=== PATIENT | female | born 1990 | race Caucasian/White ===

== ENCOUNTER 2024-12-06 16:22 | Inpatient (IN) | payer OTHER, SELFPAY ==
[2024-12-06] MEDS ORDERED: IPRATROPIUM BROM 0.5MG/2.5ML ONE ×2 (16:38→18:50)
[2024-12-06] MEDS ORDERED: ALBUTEROL 2.5 MG/3 ML NEB SOL ONE ×2 (16:38→18:50)
[2024-12-06 17:26] LABS: Absolute Lymphocytes (CBC) 2.4 K/uL (0.7-4.9); Hematocrit 31.2 % (36.0-45.0); Hemoglobin 10.1 g/dL (12.0-15.0); MCH 25.3 pg (27.0-35.0); MCHC 32.3 g/dL (32.0-36.0); MCV 78.1 fL (80-100); MPV 7.0 fL (7.6-11.3); Nucleated RBC Absolute Count 0.0 (0-0); Nucleated Red Blood Cells % 0.0 % (0-0); RBC Red Blood Cell Count 4.00 M/uL (3.86-4.86); White Blood Count 9.90 thou/uL (4.3-10.9)
[2024-12-06 17:38] LABS: PT Prothrombin Time 11.0 SECONDS (10-13.0); PTT, Activated Partial Thromb 29.8 SECONDS (27.2-37.4); Protime INR 0.97
[2024-12-06 17:48] LABS: ALT/SGPT 170.0 U/L (13-56); AST/SGOT 149.0 U/L (15-37); Albumin 3.3 g/dL (3.4-5.0); Albumin/Globulin Ratio 0.9 (1.1-1.8); Alkaline Phosphatase 143.0 U/L (45-117); Anion Gap 11.4 mEq/L (5.0-15.0); BUN Blood Urea Nitrogen 5.0 mg/dL (7-18); Globulin 3.6 g/dL (2.3-3.5); Glucose Level 107.0 mg/dL (74-106); NT PRO-BNP 2136.0 pg/mL (<125); Potassium 3.4 mEq/L (3.5-5.1); Troponin High Sensitivity 25.3 pg/mL (<58.9)
--- NOTE | 2024-12-06 18:23 | RAD REPORT ---
Procedure: Chest Single View HISTORY: Chest pain COMPARISON: none FINDINGS: Lung bases are hazy. Upper lobes appear clear.. No significant pleural effusion noted. The heart may be borderline enlarged. IMPRESSION: Lung bases are hazy which could be secondary to overlying soft tissue or infiltrates. PA and lateral chest series recommended
[2024-12-06] MEDS ORDERED: METHYLPREDNISOLONE 125 MG INJ ONE (18:50)
--- NOTE | 2024-12-06 19:14 | RAD REPORT ---
EXAMINATION: CTA CHEST PE CLINICAL INDICATION: Chest pain TECHNIQUE: 100 cc 370 Isovue administered intravenously. This examination was performed according to an angiographic protocol with 3D post-processing. This involves 3D reconstructions, MIPs, volume rendered images and/or shaded surface rendering. One or more of the following dose reduction techniqu es were used: Automated exposure control, adjustment of the mA and/or kV according to patient size, and/or iterative reconstruction. Unless otherwise specified, incidental findings do not require dedic ated imaging follow-up. [id number]. COMPARISON: No prior exam. FINDINGS: A pulmonary embolus is not seen. An aortic aneurysm not noted. No pleural effusion. No pericardial effusion. The heart is mildly to moderately enlarged. Minimal peripheral interstitial lung opacities. Mild mediastinal and hilar lymphadenopathy. Fatty liver IMPRESSION: No evidence of a pulmonary embolism Mild mediastinal and hilar lymphadenopathy probably reactive in nature. It is recommended that the pa tient have a follow-up CT chest in 3 months to assess stability/resolution of the lymph nodes
[2024-12-06 19:22] LABS: Sqamous Epithelial 20-50 /HPF (None Seen); Urine Crystals Unidentified Few /HPF (None Seen); Urine Culture Reflex Order NOT NEEDED; Urine Microscopic Reflex YN ORDER UMIC; Urine WBC Clump Rare /HPF (None Seen)
[2024-12-06] MEDS ORDERED: AZITHROMYCIN 500 MG INJ IVPB ONE ×2 (19:32→20:06)
[2024-12-06] MEDS ORDERED: CEFTRIAXONE 1000 MG/VIAL ONE (19:32)
--- NOTE | 2024-12-06 19:32 | ER ---
Nurse's Notes [facility] Name: Nannette Joyce Age: 34 yrs Sex: Female : 1990 Arrival Date: 12/06/2024 Time: 16:22 Bed 13 Private MD: Diagnosis: Dyspnea;New onset CHF Presentation: 12/06 16:35 Chief complaint: Patient states: SOB X 4 DAYS, BILATERAL LOWER EXTREMITY SWELLING X 4 db MONTHS. AND CHEST PAIN STARTED TODAY. STATES SYMPTOMS GRADUALLY GOT WORSE TILL CP STARTED TODAY. Coronavirus screen: Client denies travel out of the [place] in the last 14 days. At this time, the client does not indicate any symptoms associated with coronavirus-19. Ebola Screen: Patient negative for fever greater than or equal to 101.5 degrees Fahrenheit, and additional compatible Ebola Virus Disease symptoms Patient denies exposure to infectious person. Patient denies travel to an Ebola-affected area in the 21 days before illness onset. No symptoms or risks identified at this time. Initial Sepsis Screen: Does the patient meet any 2 criteria? HR > 90 bpm. No. Patient's initial sepsis screen is negative. Does the patient have a suspected source of infection? No. Patient's initial sepsis screen is negative. Risk Assessment: Do you want to hurt yourself or someone else? Patient reports no desire to harm self or others. Onset of symptoms was December 06, 2024. 16:35 Method Of Arrival: Ambulatory db 16:35 Acuity: KALEB 2 db Triage Assessment: 16:40 General: Appears in no apparent distress. uncomfortable, Behavior is cooperative, db anxious. Pain: Complains of pain in chest. Neuro: Level of Consciousness is awake, alert, obeys commands, Oriented to person, place, time, situation. Cardiovascular: Reports chest pain, shortness of breath. Musculoskeletal: Swelling present in right foot, left foot, right leg and left leg. Historical: - Allergies: 21:32 PENICILLINS; ss12 - PMHx: 16:37 Asthma; db - Immunization history:: Adult Immunizations unknown. - Infectious Disease History:: Denies. - Social history:: Smoking status: . Screenin:25 [facility] ED Fall Risk Assessment (Adult) History of falling in the last 3 months, hb including since admission No falls in past 3 months (0 pts) Confusion or Disorientation No (0 pts) Intoxicated or Sedated No (0 pts) Impaired Gait No (0 pts) Mobility Assist Device Used No (0 pt) Altered Elimination No (0 pt) Score/Fall Risk Level 0 - 2 = Low Risk Oriented to surroundings, Maintained a safe environment, Educated pt \T\ family on fall prevention, incl call for assistance when getting out of bed. Abuse screen: Denies threats or abuse. Denies injuries from another. Nutritional screening: No deficits noted. Tuberculosis screening: No symptoms or risk factors identified. Assessment: 17:18 General: Appears in no apparent distress. uncomfortable, Behavior is calm, cooperative. hb Pain: Denies pain. Neuro: Level of Consciousness is awake, alert, obeys commands, Oriented to person, place, time, situation. Cardiovascular: Patient's skin is warm and dry. Respiratory: Respiratory effort is labored, Respiratory pattern is symmetrical. GI: No signs and/or symptoms were reported involving the gastrointestinal system. : No signs and/or symptoms were reported regarding the genitourinary system. EENT: No signs and/or symptoms were reported regarding the EENT system. Derm: Skin is pink, warm \T\ dry. Musculoskeletal: No signs and/or symptoms reported regarding the musculoskeletal system. 18:25 Reassessment: Patient appears in no apparent distress at this time. Patient and/or hb family updated on plan of care and expected duration. Pain level reassessed. Patient is alert, oriented x 3, equal unlabored respirations, skin warm/dry/pink. 19:00 General: Appears in no apparent distress. uncomfortable, Behavior is calm, cooperative, ss12 quiet. Pain: Denies pain. Neuro: Level of Consciousness is awake, alert, obeys commands, Oriented to person, place, time, situation. Cardiovascular: Reports None Capillary refill < 3 seconds Patient's skin is warm and dry. Cardiovascular: edema noted 1+ on lower legs. Respiratory: Respiratory effort is even, Respiratory pattern is symmetrical. Respiratory: Respiratory effort is unlabored. GI: No deficits noted. No signs and/or symptoms were reported involving the gastrointestinal system. : No deficits noted. No signs and/or symptoms were reported regarding the genitourinary system. EENT: No deficits noted. No signs and/or symptoms were reported regarding the EENT system. Derm: Skin is pink, warm \T\ dry. Musculoskeletal: No deficits noted. No signs and/or symptoms reported regarding the musculoskeletal system. 20:00 Reassessment: No changes from previously documented assessment. Patient and/or family ss12 updated on plan of care and expected duration. Pain level reassessed. Patient is alert, oriented x 3, equal unlabored respirations, skin warm/dry/pink. 21:00 Reassessment: Patient appears in no apparent distress at this time. Patient and/or ss12 family updated on plan of care and expected duration. Pain level reassessed. Patient is alert, oriented x 3, equal unlabored respirations, skin warm/dry/pink. 22:00 Reassessment: Patient appears in no apparent distress at this time. Patient and/or ss12 family updated on plan of care and expected duration. Pain level reassessed. Patient is alert, oriented x 3, equal unlabored respirations, skin warm/dry/pink. 12/07 00:14 Reassessment: Patient appears in no apparent distress at this time. Patient and/or ss12 family updated on plan of care and expected duration. Pain level reassessed. Patient is alert, oriented x 3, equal unlabored respirations, skin warm/dry/pink. Vital Signs: 12/06 16:35 BP 125 / 89; Pulse 103; Resp 28; Temp 98.6(O); Pulse Ox 100% ; Weight 95.25 kg; Height db 5 ft. 4 in. ; 18:30 BP 119 / 76; Pulse 106; Resp 18; Pulse Ox 100% on R/A; hb 19:00 BP 127 / 70; Pulse 101; Resp 18; Temp 98; Pulse Ox 100% on R/A; ss12 21:50 BP 115 / 72; Pulse 104; Resp 16; Pulse Ox 99% on R/A; ss12 22:00 BP 124 / 109; Pulse 104; Resp 16; Pulse Ox 99% on R/A; ss12 23:00 BP 132 / 94; Pulse 110; Resp 16; Pulse Ox 100% on R/A; ss12 16:35 Body Mass Index 36.05 (95.25 kg, 162.56 cm) db Rachel Coma Score: 19:00 Eye Response: spontaneous(4). Motor Response: obeys commands(6). Verbal Response: ss12 oriented(5). Total: 15. ED Course: 16:27 Patient arrived in ED. al6 16:29 [facility] Clifton [facility]C [facility] sb4 16:29 Meño Talavera MD is Attending Physician. sb4 16:37 Triage completed. db 16:38 Arm band placed on Patient placed in an exam room. db 17:09 Chest Single View XRAY In Process Unspecified. EDMS 17:17 Sushma Ball, RN is Primary Nurse. hb 17:17 Test, Serum Sent. hb 17:17 BNP Sent. hb 17:17 Blood Culture Adult (2) Sent. hb 17:17 CBC with Diff Sent. hb 17:17 CMP Sent. hb 17:17 Lactate w/ 2H reflex if indic. Sent. hb 17:17 Protime (+inr) Sent. hb 17:17 Ptt, Activated Sent. hb 17:17 Troponin HS Sent. hb 17:18 Inserted saline lock: 22 gauge in left forearm, using aseptic technique. hb 18:25 Patient has correct armband on for positive identification. Bed in low position. Call hb light in reach. Provided Education on: .. 18:54 Chest For PE Angio CT In Process Unspecified. EDMS 19:32 Jak To MD is Hospitalizing Provider. sb4 20:00 Lactate w/ 2H reflex if indic. Sent. rk3 20:00 Initial lab(s) drawn, by ED staff, sent to lab. rk3 23:02 US Abdomen Limited In Process Unspecified. EDMS 23:11 CT Abd/Pelvis - Without Contrast In Process Unspecified. EDMS Administered Medications: 17:17 Drug: DuoNeb Nebulize (3:1) (2.5 mg - 0.5 mg) 3 ml Nebulizer once Route: Nebulizer; hb 18:25 Follow up: Response: No adverse reaction hb 18:54 Drug: MethylPrednisoLONE IVP 60 mg IVP once Route: IVP; Site: left forearm; hb 18:55 Drug: DuoNeb Nebulize (3:1) (2.5 mg - 0.5 mg) 3 ml Nebulizer once Route: Nebulizer; hb 19:45 Drug: Rocephin IV 1 grams IV at calculated rate once; Given slow IV push per pharmacy ss12 instructions Route: IV; Rate: calculated rate; Site: right forearm; 20:00 Drug: AZITHromycin IVPB 500 mg IVPB once over 1 hrs; (mix in 250 mL NS) Route: IVPB; ss12 Infused Over: 1 hrs; Site: left forearm; 20:15 Drug: Furosemide IVP 40 mg IVP once; give over 2 minutes Route: IVP; Site: left forearm;ss12 Medication: 20:37 VIS not applicable for this client. ss12 Outcome: 19:32 Decision to Hospitalize by Provider. sb4 12/07 01:50 Patient left the ED. rk3 Signatures: Dispatcher [employer] EDOH Sushma Ball RN RN Gail Arreola RN RN ha1 Nicole Flores RN RN Joy Roque, PA-C PA-C sb4 Sydnie Lord Rozana rk3 Sujey Rm RN RN 12 Corrections: (The following items were deleted from the chart) 12/06 21:32 16:37 Allergies: No Known Allergies; [facility] 22:20 20:37 Reassessment: 12 12 12/07 00:14 12/06 23:50 [facility]
[2024-12-06] MEDS ORDERED: NA CHLORIDE 0.9% 0 ML ONE (19:33)
--- NOTE | 2024-12-06 19:33 | EDPHYS ---
Physician Documentation [facility] Name: Nannette Jocye Age: 34 yrs Sex: Female : 1990 Arrival Date: 12/06/2024 Time: 16:22 Bed 13 Private MD: EDITH Physician Meño Talavera HPI: 12/06 17:25 This 34 yrs old Female presents to ER via Ambulatory with complaints of Shortness Of sb4 Breath. 17:31 Patient reports intermittent lower extremity swelling for 4 weeks now, shortness of sb4 breath x 3 days, and chest pain that began today. Does report a history of asthma, has been using her inhaler without significant improvement in symptoms. 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 She states that as far she knows her kidney function is normal. Historical: - Allergies: 21:32 PENICILLINS; ss12 - PMHx: 16:37 Asthma; db - Immunization history:: Adult Immunizations unknown. - Infectious Disease History:: Denies. - Social history:: Smoking status: . ROS: 17:31 Constitutional: Negative for fever, chills, and weight loss, sb4 17:31 Cardiovascular: Positive for chest pain, edema, 17:31 Respiratory: Positive for shortness of breath, 17:31 All other systems are negative, Exam: 17:32 Head/Face: Normocephalic, atraumatic. Eyes: Extra-ocular motions intact. Periorbital sb4 areas with no swelling, redness, or edema. ENT: Mucous membranes moist. Abdomen/GI: Soft, non-tender, no distension. Skin: Warm, dry with normal turgor. Normal color with no rashes, no lesions, and no evidence of cellulitis. 17:32 Constitutional: The patient appears alert, awake, in obvious distress, mildly distressed, 17:32 Cardiovascular: Rate: tachycardic, Rhythm: regular, Edema: 2+ edema to level of left midcalf and right midcalf, 17:32 Respiratory: mild respiratory distress is noted, Respirations: labored breathing, that is mild, tachypnea, Breath sounds: wheezing: expiratory is scattered, Vital Signs: 16:35 BP 125 / 89; Pulse 103; Resp 28; Temp 98.6(O); Pulse Ox 100% ; Weight 95.25 kg; Height db 5 ft. 4 in. ; 18:30 BP 119 / 76; Pulse 106; Resp 18; Pulse Ox 100% on R/A; hb 19:00 BP 127 / 70; Pulse 101; Resp 18; Temp 98; Pulse Ox 100% on R/A; ss12 21:50 BP 115 / 72; Pulse 104; Resp 16; Pulse Ox 99% on R/A; ss12 22:00 BP 124 / 109; Pulse 104; Resp 16; Pulse Ox 99% on R/A; ss12 23:00 BP 132 / 94; Pulse 110; Resp 16; Pulse Ox 100% on R/A; ss12 16:35 Body Mass Index 36.05 (95.25 kg, 162.56 cm) db Rachel Coma Score: 19:00 Eye Response: spontaneous(4). Motor Response: obeys commands(6). Verbal Response: ss12 oriented(5). Total: 15. MDM: 16:31 Medical Screening Exam initiated sb 17:34 Differential diagnosis: asthma, Bronchitis Chronic Obstructive Pulmonary Disease viral sb4 Infection, bacterial infection, URI, bronchitis, pneumonia pneumonia, pulmonary edema. 19:31 Antibiotic administration: Rocephin and Zithromax given. Data reviewed: vital signs, sb4 nurses notes, lab test result(s), EKG, radiologic studies, I have discussed the patient's presentation/case with the attending Emergency Department Physician; and as a result, I will admit patient. Counseling: I had a detailed discussion with the patient and/or guardian regarding the historical points, exam findings, and any diagnostic results supporting the discharge/admit diagnosis, lab results, radiology results, the need for further work-up and treatment in the hospital. 12/06 16:41 Order name: BNP; Complete Time: 17:51 sb4 12/06 16:41 Order name: Blood Culture Adult (2) sb4 12/06 16:41 Order name: CBC with Diff; Complete Time: 17:27 sb4 12/06 16:41 Order name: CMP; Complete Time: 17:51 sb4 12/06 16:41 Order name: Lactate w/ 2H reflex if indic.; Complete Time: 17:51 sb4 12/06 16:41 Order name: Protime (+inr); Complete Time: 17:39 sb4 12/06 16:41 Order name: Ptt, Activated; Complete Time: 17:39 sb4 12/06 16:41 Order name: Troponin HS; Complete Time: 17:51 sb4 12/06 16:41 Order name: Test, Serum; Complete Time: 18:03 sb4 12/06 17:53 Order name: Ghost Lactate-NO COLLECT Timer; Complete Time: 19:53 EDAZ 12/06 18:47 Order name: UA Rfx Migel Cult if indicated; Complete Time: 19:31 sb4 12/06 19:31 Order name: Lactate w/ 2H reflex if indic. sb4 12/06 20:36 Order name: Lactate Sepsis 2 HR Follow-up; Complete Time: 22:21 EDMS 12/07 00:15 Order name: CBC with Automated Diff EDMS 12/07 00:15 Order name: CBC with Automated Diff EDMS 12/07 00:15 Order name: CBC with Automated Diff EDMS 12/07 00:15 Order name: Comprehensive Metabolic Panel EDMS 12/07 00:15 Order name: Comprehensive Metabolic Panel EDMS 12/07 00:15 Order name: Comprehensive Metabolic Panel EDMS 12/07 00:15 Order name: Magnesium EDMS 12/07 00:15 Order name: Magnesium EDMS 12/07 00:15 Order name: Magnesium EDMS 12/07 00:15 Order name: NT PRO-BNP EDMS 12/07 00:15 Order name: NT PRO-BNP EDMS 12/07 00:15 Order name: NT PRO-BNP EDMS 12/07 00:15 Order name: Troponin High Sensitivity EDAZ 12/06 16:41 Order name: Chest Single View XRAY; Complete Time: 18:24 4 12/06 18:24 Order name: Chest For PE Angio CT; Complete Time: 19:16 sb4 12/06 22:24 Order name: US Abdomen Limited cp 12/06 22:24 Order name: CT Abd/Pelvis - Without Contrast cp 12/07 00:04 Order name: Echo with Doppler EDMS 12/07 00:04 Order name: Echo with Doppler EDMS 12/07 00:07 Order name: CONS Physician Consult EDAZ 12/06 16:41 Order name: Accucheck; Complete Time: 17:17 4 12/06 16:41 Order name: Cardiac monitoring; Complete Time: 18:25 sb4 12/06 16:41 Order name: EKG - Nurse/Tech; Complete Time: 18:25 sb4 12/06 16:41 Order name: IV Saline Lock - Large Bore; Complete Time: 17:17 sb4 12/06 16:41 Order name: Labs collected and sent; Complete Time: 17:17 sb4 12/06 16:41 Order name: O2 Per Protocol; Complete Time: 17:17 sb4 12/06 16:41 Order name: O2 Sat Monitoring; Complete Time: 17:17 sb4 12/06 16:41 Order name: Vital Signs; Complete Time: 17:17 sb4 Administered Medications: 17:17 Drug: DuoNeb Nebulize (3:1) (2.5 mg - 0.5 mg) 3 ml Nebulizer once Route: Nebulizer; hb 18:25 Follow up: Response: No adverse reaction hb 18:54 Drug: MethylPrednisoLONE IVP 60 mg IVP once Route: IVP; Site: left forearm; hb 18:55 Drug: DuoNeb Nebulize (3:1) (2.5 mg - 0.5 mg) 3 ml Nebulizer once Route: Nebulizer; hb 19:45 Drug: Rocephin IV 1 grams IV at calculated rate once; Given slow IV push per pharmacy ss12 instructions Route: IV; Rate: calculated rate; Site: right forearm; 20:00 Drug: AZITHromycin IVPB 500 mg IVPB once over 1 hrs; (mix in 250 mL NS) Route: IVPB; ss12 Infused Over: 1 hrs; Site: left forearm; 20:15 Drug: Furosemide IVP 40 mg IVP once; give over 2 minutes Route: IVP; Site: left forearm;ss12 Disposition Summary: 12/06/24 19:32 Hospitalization Ordered Notes: Hospitalization Status: Inpatient Admission sb4 Provider: Jak To4 Location: Telemetry/MedSurg (Inpatient) sb4 Condition: Fair sb4 Problem: new sb4 Symptoms: are unchanged sb4 Bed/Room Type: Standard sb4 Room Assignment: 221(12/06/24 21:40) vk Diagnosis - Dyspnea sb4 - New onset CHF sb4 Forms: - Medication Reconciliation Form sb4 - SBAR form sb4 - Leadership Thank You Letter sb4 Signatures: Dispatcher [employer] EDMeño Alexandre PA-C PA-C cp Baxter, Heather, RN RN hb Nicole Flores, RN RN Joy Roque, PA-C PA-C sb4 Maya James Shamaila RN RN ss12 Corrections: (The following items were deleted from the chart) 16:41 16:41 PROBNP+C.LAB.BRZ ordered. EDMS EDMS 16:41 16:41 BLOOD CULTURE*+BA.LAB.BRZ ordered. EDMS EDMS 16:41 16:41 CBC+H.LAB.BRZ ordered. EDMS EDMS 16:41 16:41 COMPREHENSIVE METABOLIC PANEL+C.LAB.BRZ ordered. EDMS EDMS 16:41 16:41 LACTATE+C.LAB.BRZ ordered. EDMS EDMS 16:41 16:41 PROTIME (+INR)+COAG.LAB.BRZ ordered. EDMS EDMS 16:41 16:41 PTT, ACTIVATED+COAG.LAB.BRZ ordered. EDMS EDMS 16:41 16:41 Troponin High Sensitivity+C.LAB.BRZ ordered. EDMS EDMS 16:41 16:41 TEST, SERUM+SC.LAB.BRZ ordered. EDMS EDMS 16:42 16:42 Chest Single View+RAD.RAD.BRZ ordered. EDMS EDMS 21:32 16:37 Allergies: No Known Allergies; elijah 12 21:40 19:32 sb4 vk
[2024-12-06] MEDS ORDERED: NA CHLORIDE 0.9% 250 ML ONE (20:06)
[2024-12-06] MEDS ORDERED: FUROSEMIDE 20 MG/ 2ML VIAL ONE (20:19)
--- NOTE | 2024-12-06 23:49 | RAD REPORT ---
EXAM DESCRIPTION: Abdomen Exam Limited CLINICAL HISTORY: 34 years Female, elevated liver enzymes COMPARISON: None. TECHNIQUE: Limited sonographic imaging of the abdomen was performed. FINDINGS: Gallbladder appears unremarkable. No evidence of gallstones or gallbladder wall thickening. Common bi le duct measures 2 mm in width and is normal. Imaged liver demonstrates increased echogenicity suggesting fatty changes. IMPRESSION: 1. Unremarkable appearance of the gallbladder. 2. Hepatic steatosis. Electronically signed by: Shorty Mcgovern MD 12/06/2024 11:42 PM CDT RP Due to temporary technical issues with the [employer]ACS/[employer] reporting system, reports are being demarco d by the in-house radiologist without review as a courtesy to ensure prompt reporting the interpreting radiologist is fully responsible for the content of the report. Transcribed Date/Time: 12/06/2024 11:49 PM
[2024-12-07] MEDS ORDERED: ALBUTEROL 2.5 MG/3 ML NEB SOL NEB PRN (00:06)
--- NOTE | 2024-12-07 00:15 | P.HP ---
Certification for Inpatient Patient admitted to: Inpatient With expected LOS: >2 Midnights Patient will require the following post-hospital care: None Practitioner: I am a practitioner with admitting privileges, knowledge of patient current condition, hospital course, and medical plan of care. Services: Services provided to patient in accordance with Admission requirements found in Title 42 Section 412.3 of the Code of Federal Regulations Patient History Date of Service: 12/06/24 Reason for admission: New onset CHF, dyspnea, and lower extremities edema. History of Present Illness: Patient is a pleasant 34-year-old female with past medical history of asthma, nicotine use disorder, insomnia, depression, restless leg syndromes, post left nephrectomy, who presents to the ER today complaining of worsening shortness of breath, and bilateral lower extremities increasing edema. Patient states she has been having intermittent bilateral lower extremities swelling for the past 4 weeks, but states within the past couple of days it has progressively increased with associated shortness of breath within the past 3 days. Patient states within the past 3 days she has been using her rescue inhaler excessively with no relief of her shortness of breath. States this a.m. her shortness of breath progressively worsened which then prompted her to report to the ER. States about a month ago she had an injury to her left ankle but no fracture. Patient denies of any prior history of CHF. 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 On admission assessment, patient was fully awake, alert and oriented x 3, bilateral lower extremities two to 3+ pitting edema, bilateral lungs with scattered coarse crackles, and rhonchi, respiration even and nonlabored, with no shortness of breath noted at this time after receiving Lasix IV in ER, patient able to communicate in full sentences with no shortness of breath noted. Patient BNP 2136. Patient clinical presentation appears to be new onset CHF. Course in ER. (1) CT abdomen without contrast. Impression: Hepatomegaly with heterogeneous, predominantly hypodense liver. This is consistent with fatty infiltration with focal areas of fatty sparing. (2) ultrasound of the abdomen. Impression: Unremarkable appearance of the gallbladder. Hepatic steatosis. (3) CTA chest. Impression: No evidence of a pulmonary embolism. (4) chest x-ray 1 view. Impression: Lung bases are hazy which could be secondary to overlying soft tissues or infiltrates. PA and lateral chest series recommended. Allergies Penicillins Allergy (Verified 12/07/24 02:04) Anaphylaxis Home Medications: Gabapentin 300 mg PO TID 12/07/24 Trazodone [Desyrel] 25 mg PO BEDTIME 12/07/24 hydrOXYzine HCL [Atarax] 25 mg PO BID 12/07/24 - Past Medical/Surgical History -: Asthma. -: Insomnia. -: Depression. -: Restless leg syndrome. -: Left nephrectomy. -: Gastric bypass. - Family History Mother -: Heart disease, Hypertension, Kidney disease (Received kidney transplant.) Father -: Heart disease, Diabetes - Social History Smoking Status: Current every day smoker Smoking therapy provided: Yes Patient receptive to therapy: No Alcohol use: Yes CD- Drugs: No Caffeine use: Yes Place of Residence: Home Review of Systems 10-point ROS is otherwise unremarkable Respiratory: Shortness of Breath, SOB with Excertion Cardiovascular: Edema (Bilateral lower extremities, possible new onset CHF.) Physical Examination - Physical Exam General: Alert, In no apparent distress, Oriented x3, Cooperative HEENT: Atraumatic, Normocephalic, PERRLA, Mucous membr. moist/pink, Sclerae nonicteric Neck: 2+ carotid pulse no bruit, No LAD, Without JVD or thyroid abnormality Respiratory: Other (Bilateral coarse scattered crackles with rhonchi.) Cardiovascular: Normal pulses, Regular rate/rhythm, Normal S1 S2, No gallops, No rubs, No murmurs, Edema (2+ pitting edema bilateral lower extremities.) Capillary refill: <2 Seconds Gastrointestinal: Normal bowel sounds, Soft and benign, W/out hepatomegaly, No ascites, No tenderness, No masses, No rebound, No guarding Musculoskeletal: No clubbing, No swelling, No contractures, No erythema, No tenderness, No warmth Integumentary: No rashes, No breakdown, No significant lesion, No tenderness/swelling, No erythema, No warmth, No cyanosis Neurological: Normal gait, Normal speech, Normal strength at 5/5 x4 extr, Normal tone, Sensation intact, Cranial nerves 3-12 intact, Normal reflexes 2+, Normal affect Lymphatics: No axilla or inguinal lymphadenopathy - Studies Laboratory Data (last 24 hrs) 12/06/24 12/06/24 12/06/24 17:10 17:10 16:53 WBC 9.90 Hgb 10.1 L Hct 31.2 L Plt Count 438 H PT 11.0 INR 0.97 APTT 29.8 Sodium 139 Potassium 3.4 L BUN 5 L Creatinine 0.80 Glucose 107 H Total Bilirubin 0.4 AST 149 H ALT 170 H Alkaline Phosphatase 143 H Female Exam - Breasts Breasts: Normal configuration, Normal contours, Symmetrical Assessment and Plan - Plan Patient is a 32-year-old female reports to ER complaining of worsening shortness of breath with associated bilateral lower extremities pitting edema. Patient is admitted with diagnosis of new onset CHF, and asthma. (1)New onset CHF/Acute on chronic asthma. Patient received initial dose of Lasix 40 mg IV in ER with good diuretic results, and improved her breathing. -Lasix 40 mg IV daily. -Consult nicu rn Dr. Starks. -Order Daily weight. -Order for echocardiogram. -Order Brovana 15 mcg nebulizer twice daily. - Order albuterol 2.5 mg nebulizer as needed every 6 hours. -Cardiac diet with low sodium. (2) chronic restless leg syndrome. -Continue home gabapentin 300 mg p.o. 3 times daily.. (3)Explained entire treatment plan to the patient, solicited questions answered and voiced understanding. Discharge Plan: Home Plan to discharge in: Greater than 2 days - Advance Directives Does patient have a Living Will: No Does patient have a Durable POA for Healthcare: No - Code Status/Comfort Care Code Status Assessed: Yes Code Status: Full Code Time Spent Managing Pts Care (In Minutes): 55
--- NOTE | 2024-12-07 00:54 | RAD REPORT ---
Clinical Indication: NO CONTRAST Bed Name: 13. Elevated liver enzymes Comparison: None. TECHNIQUE: Noncontrast helical imaging was performed without oral or IV contrast from diaphragm to th e symphysis pubis regions. Multiplanar reformations are obtained. Coronal and sagittal reformats were performed and provided as separate series. CT Radiation Dose: DLP = 1224.8 mGy-cm All CT scans at this location are performed using dose optimization techniques as appropriate to perf orm the study. Radiation dose reduction technique was utilized including one or more of the following: Automated exp osure control, adjustment of the mA and/or kV according to patient size and use of iterative reconstruction technique. FINDINGS: This examination is limited for the evaluation of solid organs and vascular structures due to lack of intravenous contrast. LOWER CHEST: The visualized lung bases are clear. NON-CONTRAST ENHANCED SOLID ORGANS: LIVER: The liver is enlarged and heterogeneous. The right liver measures 18.3 cm in maximum dimension . Overall the liver is hypodense, consistent with fatty infiltration. There are focal areas of fatty sparing throughout the liver. GALLBLADDER: Unremarkable. INTRAHEPATIC BILE DUCT AND EXTRAHEPATIC BILE DUCT: Unremarkable. PANCREAS: Unremarkable. SPLEEN: Unremarkable. ADRENALS: Unremarkable. KIDNEYS: The patient is status post left nephrectomy. Slight hypertrophy of the right kidney is not ed. Excreted contrast is noted within the collecting system. STOMACH: Evaluation of the stomach and bowel is limited due to lack of oral contrast. The patient is status post gastric bypass. BOWEL: The non-contrast opacified small bowel loops in the abdomen and pelvis appear unremarkable. Th e noncontrast opacified colonic loops in the abdomen and pelvis appear unremarkable. APPENDIX: The appendix is normal in caliber without surrounding inflammatory changes. PERITONEUM AND RETROPERITONEUM: No ascites or free air. No loculated fluid collection is noted. The a bdominal aorta is normal in caliber. LYMPH NODES: Unremarkable. PELVIS: No pelvic mass or adenopathy. The uterus and adnexa are unremarkable. BLADDER: Excreted contrast is noted within the urinary bladder. OSSEOUS STRUCTURES: No acute abnormality seen. SOFT TISSUES: Mild subcutaneous edema is noted in the lower back. Mild subcutaneous edema is noted in the lateral flanks. IMPRESSION: 1. Hepatomegaly with heterogeneous, predominantly hypodense liver. This is consistent with fatty infi ltration with focal areas of fatty sparing. 2. Status post left nephrectomy. Electronically signed by: Esdras Schwarz MD 12/07/2024 12:19 AM CDT RP Due to temporary technical issues with the PACS/[employer] reporting system, reports are being demarco d by the in-house radiologist without review as a courtesy to ensure prompt reporting the interpreting radiologist is fully responsible for the content of the report. Transcribed Date/Time: 12/07/2024 12:53 AM
[2024-12-07 02:09] VITALS: BMI 42.8
[2024-12-07] MEDS: GABAPENTIN 300 MG CAP PO ONE (02:50)
[2024-12-07 03:34] VITALS: O2SAT 100
[2024-12-07] MEDS: ARFORMOTEROL TARTRATE 15 MCG/2 ML VIAL.NEB NEB SCH (08:08)
[2024-12-07] MEDS: FUROSEMIDE 40 MG/4 ML VIAL IV SCH (08:23)
[2024-12-07] MEDS: ENOXAPARIN 40 MG/0.4 ML SQ SCH (08:23)
[2024-12-07] MEDS: hydrOXYzine HCL 25 MG TAB PO SCH (08:23)
[2024-12-07] MEDS: GABAPENTIN 300 MG CAP PO SCH (08:24)
[2024-12-07 11:45] VITALS: BP 131/80; TEMP 98.2
--- NOTE | 2024-12-07 16:34 | P.DS ---
Admission Date: 12/06/24 Discharge Date: 12/07/24 Disposition: AMA-LEFT AGAINST MEDICAL ADVIC Reason for Admission: New onset CHF, dyspnea, and lower extremities edema. Hospital Course: Patient was admitted for decompensated CHF. She was still volume overloaded during my evaluation. She would benefit from a longer hospital stay for adequate diuresis and electrolyte replacements. She decided to leave AMA, stating that she is moving into a new apartment and the keys were going to be given to her today. Vital Signs/Physical Exam: Temp Pulse Resp BP Pulse Ox 98.2 F 114 H 16 131/80 96 12/07/24 11:44 12/07/24 11:44 12/07/24 11:44 12/07/24 11:44 12/07/24 11:44 Laboratory Data at Discharge: WBC 9.90 thou/uL (4.3-10.9) 12/06/24 17:10 Hgb 10.1 g/dL (12.0-15.0) L 12/06/24 17:10 Hct 31.2 % (36.0-45.0) L 12/06/24 17:10 Plt Count 438 thou/uL (152-406) H 12/06/24 17:10 PT 11.0 SECONDS (10-13.0) 12/06/24 17:10 INR 0.97 12/06/24 17:10 APTT 29.8 SECONDS (27.2-37.4) 12/06/24 17:10 Sodium 139 mEq/L (136-145) 12/06/24 16:53 Potassium 3.4 mEq/L (3.5-5.1) L 12/06/24 16:53 BUN 5 mg/dL (7-18) L 12/06/24 16:53 Creatinine 0.80 mg/dL (0.55-1.02) 12/06/24 16:53 Glucose 107 mg/dL (74-106) H 12/06/24 16:53 Total Bilirubin 0.4 mg/dL (0.2-1.0) 12/06/24 16:53 AST 149 U/L (15-37) H 12/06/24 16:53 ALT 170 U/L (13-56) H 12/06/24 16:53 Alkaline Phosphatase 143 U/L (45-117) H 12/06/24 16:53 Home Medications: Gabapentin 300 mg PO TID 12/07/24 Trazodone [Desyrel] 25 mg PO BEDTIME 12/07/24 hydrOXYzine HCL [Atarax] 25 mg PO BID 12/07/24 Followup: NONE,NONE [Primary Care Provider] -
[2024-12-07] MEDS ORDERED: TRAZODONE 50 MG TABLET PO SCH (21:00)
== END 2024-12-07 16:37 | disposition left against medical advice (07) | DRG 203 ==
LOC: ER 16:22 → 2ND 23:59
PROVIDERS: ADMIT Internal Medicine; ATTEND Internal Medicine
DX: J45.909 Unspecified asthma, uncomplicated (principal); I50.9 Heart failure, unspecified; G25.81 Restless legs syndrome; F17.200 Nicotine dependence, unspecified, uncomplicated; Z52.4 Kidney donor; Z88.0 Allergy status to penicillin; Z90.5 Acquired absence of kidney; Z53.29 Procedure and treatment not carried out because of patient's decision for other reasons
CPT/HCPCS: 36415; 71045; 71275; 74176; 76705; 80053; 81001; 83605; 83880; 84484; 84703; 85025; 85610; 85730; 87040; 93005; 94010; 94640; 99284; J0456; J0696; J1650; J1938; J2919; J7050; J7605; J7613; J7644; Q9967